=== PATIENT | female | born 1950 | race Caucasian/White ===

== ENCOUNTER 2021-02-23 07:07 | Emergency (ER) | payer MEDICARE, OTHER ==
[~2021-02-23] VITALS: Ht 165.1 cm; Wt 68.0 kg
--- NOTE | 2021-02-23 07:13 | NUR ---
PT AAOX4. NEPALI SPEAKING. BIBRA C/O R UPPER ARM PAIN S/P ROLLED OFF BED. PLACED IN BED 9 ON MONITOR AND PULSE OX. VSS.
[2021-02-23] MEDS ORDERED: FENTANYL PF 100MCG/2ML AMPUL IM ONE (07:30)
[2021-02-23] MEDS ORDERED: FENTANYL PF 100MCG/2ML AMPUL ONE (07:55)
--- NOTE | 2021-02-23 07:55 | NUR ---
50mcg fentanyl wasted; witnessed by myself and Brooklyn Carmen RN
--- NOTE | 2021-02-23 08:10 | NUR ---
MD at bedside evaluating the patient.
--- NOTE | 2021-02-23 08:14 | NUR ---
daughter at bedside, pain medication given as ordered, will continue to monitor.
--- NOTE | 2021-02-23 08:22 | NUR ---
Paged Dr. Guerrero for doc to doc
[2021-02-23] MEDS ORDERED: FURO20TA4 PO (08:28)
[2021-02-23] MEDS ORDERED: ATOR10TA PO (08:28)
[2021-02-23] MEDS ORDERED: FOLI0.4T6 PO (08:28)
[2021-02-23] MEDS ORDERED: DONE10TA44 PO (08:28)
[2021-02-23] MEDS ORDERED: PROP20TA19 PO (08:28)
[2021-02-23] MEDS ORDERED: ASPI-1420 PO (08:28)
[2021-02-23] MEDS ORDERED: BENA10TA74 PO (08:28)
[2021-02-23] MEDS ORDERED: ALEN70TA80 PO (08:28)
[2021-02-23] MEDS ORDERED: IBUP-1957 PO (09:07)
[2021-02-23] MEDS ORDERED: OXYC-128 PO (09:07)
[2021-02-23 09:20] VITALS: BP 159/85
--- NOTE | 2021-02-23 09:21 | NUR ---
Patient discgarge in stable condition accompanied by daughter, patient is on a sling on right arm, health teaching and discharge instruction given and verbalized understanding, provided CD/ copy of xray. Prescription medication sent directly to the pharmacy. All belongings with daughter. VSS.
== END 2021-02-23 09:21 | disposition home or self-care (01) ==
LOC: ER 07:10
DX: S42.291A Other displaced fracture of upper end of right humerus, initial encounter for closed fracture (principal); I10 Essential (primary) hypertension; E78.5 Hyperlipidemia, unspecified; Z79.82 Long term (current) use of aspirin; Z79.899 Other long term (current) drug therapy; W06.XXXA Fall from bed, initial encounter; Y93.89 Activity, other specified; Y92.89 Other specified places as the place of occurrence of the external cause; Y99.8 Other external cause status
CPT/HCPCS: 73030; 73060; 96372; 99284; J3010

== ENCOUNTER 2025-02-17 14:33 | Emergency (ER) | payer MEDICARE, OTHER ==
[~2025-02-17] VITALS: Ht 152.4 cm; Wt 69.9 kg
[~2025-02-17 14:33] MED LIST: ALEN70TA80 PO; ASPI-1420 PO; ATOR10TA PO; BENA10TA74 PO; DONE10TA44 PO; FOLI0.4T6 PO; FURO20TA4 PO; IBUP-1957 PO; OXYC-128 PO; PROP20TA19 PO
[2025-02-17 14:42] VITALS: TEMP 97.9
[2025-02-17] MEDS ORDERED: methylPREDNISolone SOD SUCC 125 MG/2ML VIAL ONE (15:03)
[2025-02-17] MEDS: methylPREDNISolone SOD SUCC 125 MG/2ML VIAL IV ONE (15:17)
[2025-02-17] MEDS ORDERED: IPRATROPIUM NEB FS 0.5 MG/2.5 ML AMPUL.NEB ONE (15:25)
[2025-02-17] MEDS ORDERED: ALBUTEROL FS 2.5 MG/3 ML VIAL.NEB ONE (15:25)
[2025-02-17 15:30] VITALS: O2SAT 98
[2025-02-17] MEDS: ALBUTEROL FS 2.5 MG/3 ML VIAL.NEB NEB ONE (15:30)
[2025-02-17] MEDS: IPRATROPIUM NEB FS 0.5 MG/2.5 ML AMPUL.NEB NEB ONE (15:30)
[2025-02-17 15:44] VITALS: O2SAT 99
[2025-02-17] MEDS ORDERED: ALBU6.7H9 INH (16:09)
[2025-02-17] MEDS ORDERED: BENZ-13 PO (16:09)
[2025-02-17] MEDS ORDERED: PRED20TA PO (16:09)
[2025-02-17 16:27] VITALS: BP 136/70; O2SAT 99
== END 2025-02-17 16:27 | disposition home or self-care (01) ==
LOC: ER 14:38
DX: R06.2 Wheezing (principal); R05.9 Cough, unspecified; I10 Essential (primary) hypertension; E78.5 Hyperlipidemia, unspecified; Z79.1 Long term (current) use of non-steroidal anti-inflammatories (NSAID); Z79.82 Long term (current) use of aspirin; Z79.899 Other long term (current) drug therapy
CPT/HCPCS: 71045-TC; J2919